=== PATIENT | female | born 1955 ===

== ENCOUNTER 2017-12-08 20:09 | Emergency (ER) | payer OTHER ==
[2017-12-08 20:57] VITALS: TEMP 98.2; BMI 32.0
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
[2017-12-08 23:13] VITALS: BP 119/85; PULSE 68; RESP 22; O2SAT 100
== END 2017-12-08 22:35 | disposition home or self-care (01) ==
LOC: ED 20:09
DX: M54.2 Cervicalgia (principal); V43.52XA Car driver injured in collision with other type car in traffic accident, initial encounter; Y92.410 Unspecified street and highway as the place of occurrence of the external cause

== ENCOUNTER 2017-12-30 09:38 | Observation (INO) | payer OTHER ==
--- NOTE | 2017-12-30 09:56 | ED PDOC ---
Arrival/HPI - General Chief Complaint: Dizziness/Lightheaded Historian: Patient, Parent - History of Present Illness Narrative History of Present Illness (Text): 12/30/17 09:48 62 y/o female, pmh including htn/DM (on januvia), post menopausal, nkda, c/o d izziness/nauseas/vomiting after woke up from sleeping this morning x 2 hours. Pt. stated that she feels fine last night before sleeping, woke up this morning with dizziness room spinning sensation associated with nausea/vomiting, been vomiting with elevated BP, no chest pain or shortness of breath, no numbness or tingling, no slurred speech, no other medical or psychological complaints. Past Medical History - Provider Review Nursing Documentation Reviewed: Yes - Cardiac Hx Cardiac Disorders: Yes Hx Hypertension: Yes - Pulmonary Hx Respiratory Disorders: No - Neurological Hx Neurological Disorder: No - HEENT Hx HEENT Disorder: No - Renal Hx Renal Disorder: No - Endocrine/Metabolic Hx Endocrine Disorders: Yes Hx Diabetes Mellitus Type 2: Yes - Hematological/Oncological Hx Blood Disorders: No - Integumentary Hx Dermatological Disorder: No - Musculoskeletal/Rheumatological Hx Musculoskeletal Disorders: Yes Hx Osteoarthritis: Yes - Genitourinary/Gynecological Hx Genitourinary Disorders: No - Psychiatric Hx Psychophysiologic Disorder: No Hx Substance Use: No - Surgical History Hx Section: Yes - Anesthesia Hx Anesthesia: Yes Hx Anesthesia Reactions: Yes Family/Social History - Physician Review Nursing Documentation Reviewed: Yes Family/Social History: Unknown Family HX Smoking Status: Never Smoked Hx Alcohol Use: No Hx Substance Use: No Allergies/Home Meds Allergies/Adverse Reactions: Allergies seasonal Allergy (Uncoded 12/30/17 09:41) CONGESTION Home Medications: Home Meds Medication Instructions Recorded Confirmed Losartan/Hydrochlorothiazide 1 tab PO DAILY 12/30/17 12/30/17 [Hyzaar 100-25 Tablet] Metoprolol Succinate [Kapspargo 50 mg PO DAILY 12/30/17 12/30/17 Sprinkle] amLODIPine [Norvasc] 5 mg PO DAILY 12/30/17 12/30/17 Review of Systems - Review of Systems Constitutional: absent: Fatigue, Fevers Eyes: absent: Vision Changes ENT: absent: Hearing Changes Respiratory: absent: SOB, Cough Cardiovascular: absent: Chest Pain Gastrointestinal: absent: Abdominal Pain, Nausea, Vomiting Musculoskeletal: absent: Arthralgias, Back Pain Skin: absent: Rash, Pruritis Neurological: absent: Headache, Dizziness Hemo/Lymphatic: absent: Adenopathy Psychiatric: absent: Anxiety, Depression, Suicidal Ideation Physical Exam Vital Signs Reviewed: Yes Vital Signs Temp Pulse Resp BP Pulse Ox 12/30/17 09:44 97.8 F 73 20 198/95 H 99 Temperature: Afebrile Blood Pressure: Hypertensive Pulse: Regular Respiratory Rate: Normal Appearance: Positive for: Well-Appearing, Non-Toxic, Comfortable Pain Distress: None Mental Status: Positive for: Alert and Oriented X 3 - Systems Exam Head: Present: Atraumatic, Normocephalic. No: Tenderness, Contusion, Swelling, Ecchymosis, Abrasion, Laceration, Other Pupils: Present: PERRL Extroacular Muscles: Present: EOMI Conjunctiva: Present: Normal Ears: Present: NORMAL TM, Normal Canal. No: Erythema Mouth: Present: Moist Mucous Membranes Pharnyx: No: ERYTHEMA, EXUDATE, TONSILS ENLARGED Nose (External): Present: Atraumatic. No: Abrasion, Contusion, Laceration Nose (Internal): Present: Normal Inspection, No Active Bleeding. No: Rhinorrhea, Septal Hematoma, Epistaxis Neck: Present: Normal Range of Motion Respiratory/Chest: Present: Clear to Auscultation, Good Air Exchange. No: Respiratory Distress, Accessory Muscle Use Cardiovascular: Present: Regular Rate and Rhythm, Normal S1, S2. No: Murmurs Abdomen: No: Tenderness, Distention, Peritoneal Signs, Rebound, Guarding Back: Present: Normal Inspection. No: Midline Tenderness, Paraspinal Tenderness, Pain with Leg Raise, Decubitus Ulcer Upper Extremity: Present: Normal Inspection, Normal ROM, NORMAL PULSES, Neurovascularly Intact, Capillary Refill < 2s. No: Cyanosis, Edema, Deformity Lower Extremity: Present: Normal Inspection, NORMAL PULSES, Normal ROM, Neurovascularly Intact, Capillary Refill < 2 s. No: Edema, Deformity Neurological: Present: GCS=15, CN II-XII Intact, Speech Normal, Motor Func Grossly Intact, Gait Normal, Memory Normal Skin: Present: Warm, Dry, Normal Color. No: Rashes Psychiatric: Present: Alert, Oriented x 3, Normal Insight, Normal Concentration Medical Decision Making ED Course and Treatment: 12/30/17 10:05 -Labs -CT head -IVF/meclizine/zofran -Observe and reassess 12/30/17 10:46 -EKG NSR @ 64 BPM, no ST elevation or depression, no T wave inversion. -CT Head show No acute intracranial abnormality. If there is a persistent focal neurologic deficit and an ongoing clinical concern for acute infarction, an MRI of the brain without intravenous contrast would be a more sensitive modality for evaluation of hyperacute/acute ischemic infarction. -Labs show no acute findings except glucose 405 (bolus fluid ordered) -Mg within normal limit -Lipase within normal limit -UA show no UTI 12/30/17 14:48 -FS 239 after IVF without insulin. -VBG 7.29, so ABG ordered. 12/30/17 15:13 -ABG: PH 7.36, PCO2 43, HCO3 24.3, no signs of DKA, Carboxyhemoglobin 2.1 (normal non smoker up to 3 percent). -Pt. is hungry, eating and drinking well, walking with normal gait and posture, no focal neurological complaints, no focal neurological deficits, all labs and radiology result discussed with the patient. Pt. is out of metformin 500mg po bid and Januvia 100mg po qd, request medication refill. -Pt. didn't take her BP medication today, amlodipine and hyzaar 100-12.5 mg po ordered. 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 - RAD Interpretation Radiology Orders: PROCEDURE: CT HEAD WITHOUT CONTRAST. HISTORY: dizziness/nausea/vomiting COMPARISON: None available. TECHNIQUE: Axial computed tomography images were obtained through the head/brain without intravenous contrast. Radiation dose: Total exam DLP = 968.56 mGy-cm. This CT exam was performed using one or more of the following dose reduction techniques: Automated exposure control, adjustment of the mA and/or kV according to patient size, and/or use of iterative reconstruction technique. FINDINGS: HEMORRHAGE: No intracranial hemorrhage. BRAIN: Garzon-white matter differentiation is preserved. There is no mass, mass effect or abnormal extra-axial fluid collection. There is no territorial infarction. The midline sagittal structures are normal. VENTRICLES: There is mild age-related global parenchymal volume loss and proportionate enlargement of the ventricles and cortical sulci. CALVARIUM: There is no calvarial fracture or extracranial soft tissue swelling. PARANASAL SINUSES: Predominantly clear. MASTOID AIR CELLS: Predominantly clear. OTHER FINDINGS: None. IMPRESSION: No acute intracranial abnormality. If there is a persistent focal neurologic deficit and an ongoing clinical concern for acute infarction, an MRI of the brain without intravenous contrast would be a more sensitive modality for evaluation of hyperacute/acute ischemic infarction. Plastics Supervisor: Radiologist - EKG Interpretation EKG Interpretation (Text): 12/30/17 10:42 NSR @ 64 BPM, no ST elevation or depression, no T wave inversion. Interpreted by ED Physician: Yes Type: 12 lead EKG - PA / PRODUCER / Resident Statement MD/DO has reviewed & agrees with the documentation as recorded. Disposition/Present on Arrival - Present on Arrival Any Indicators Present on Arrival: No History of DVT/PE: No History of Uncontrolled Diabetes: Yes Urinary Catheter: No History of Decub. 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 Prescriptions: Meclizine [Meclizine*] 25 mg PO Q6 PRN #30 tab PRN Reason: Other metFORMIN [glucOPHAGE] 500 mg PO BID #60 tab Ondansetron [Zofran] 4 mg PO Q8H PRN #12 tab PRN Reason: Other SITagliptin [Januvia] 100 mg PO DAILY #30 tab Referrals: Monica Oakley MD [Medical Doctor] - Follow up with primary [facility] [place] [Outside] - Follow up with primary Jenni García MD [Staff Provider] - Follow up with primary Forms: [employer] (Serbian), WORK NOTE
[2017-12-30] MEDS ORDERED: Sodium Chloride 0.9% 500 ML IV STA ×3 (09:57→13:09)
[2017-12-30 10:08] LABS: BASO # 0.05 K/mm3 (0.0-2.0); BASO % 0.5 % (0.0-3.0); EOS # 0.4 (0.0-0.7); EOS % 3.6 % (1.5-5.0); GRAN # 8.1 (1.4-6.5); GRAN % 74.9 % (50.0-68.0); HEMOGLOBIN 15.1 g/dL (12.0-16.0); LYMPH # 1.7 (1.2-3.4); LYMPH % 15.6 % (22.0-35.0); MEAN CELL VOLUME 86.7 fl (80.0-105.0); MEAN CORPUSCULAR HGB CONC 34.6 g/dl (31.0-37.0); MEAN PLATELET VOLUME 10.9 fl (7.0-11.0); MONO # 0.6 (0.1-0.6); MONO % 5.4 % (1.0-6.0); RBC 5.03 10^6/uL (3.5-6.1); RED CELL DISTRIBUTION WIDTH 12.3 % (11.5-14.5); WHITE BLOOD COUNT 10.8 10^3/uL (4.5-11.0)
[2017-12-30] MEDS: Sodium Chloride 0.9% 1,000 ML IV SCH ×2 (10:11→21:23)
[2017-12-30 10:26] LABS: ALB/GLOB RATIO 1.2 (1.1-1.8); ALBUMIN 4.5 g/dL (3.0-4.8); ALT/SGPT 28 U/L (7-56); AST/SGOT 29 U/L (14-36); BLOOD UREA NITROGEN 21 mg/dL (7-21); CALCIUM 9.4 mg/dL (8.4-10.5); GFR NON-AFRICAN AMERICAN > 60; LIPASE 127 U/L (23-300)
--- NOTE | 2017-12-30 10:41 | CT ---
Date of service: 12/30/2017 PROCEDURE: CT HEAD WITHOUT CONTRAST. HISTORY: dizziness/nausea/vomiting COMPARISON: None available. TECHNIQUE: Axial computed tomography images were obtained through the head/brain without intravenous contrast. Radiation dose: Total exam DLP = 968.56 mGy-cm. This CT exam was performed using one or more of the following dose reduction techniques: Automated exposure control, adjustment of the mA and/or kV according to patient size, and/or use of iterative reconstruction technique. FINDINGS: HEMORRHAGE: No intracranial hemorrhage. BRAIN: Garzon-white matter differentiation is preserved. There is no mass, mass effect or abnormal extra-axial fluid collection. There is no territorial infarction. The midline sagittal structures are normal. VENTRICLES: There is mild age-related global parenchymal volume loss and proportionate enlargement of the ventricles and cortical sulci. CALVARIUM: There is no calvarial fracture or extracranial soft tissue swelling. PARANASAL SINUSES: Predominantly clear. MASTOID AIR CELLS: Predominantly clear. OTHER FINDINGS: None. IMPRESSION: No acute intracranial abnormality. If there is a persistent focal neurologic deficit and an ongoing clinical concern for acute infarction, an MRI of the brain without intravenous contrast would be a more sensitive modality for evaluation of hyperacute/acute ischemic infarction.
[2017-12-30 11:18] LABS: VENOUS BLOOD GAS BASE EXCESS 0.1 mmol/L (0.0-2.0); VENOUS BLOOD GAS PO2 63 mm/Hg (30-55); VENOUS BLOOD PH 7.29 (7.32-7.43)
[2017-12-30 13:02] LABS: URINE BILIRUBIN NEGATIVE (NEGATIVE); URINE BLOOD NEGATIVE (NEGATIVE); URINE GLUCOSE (UA) >=1000 mg/dL (NEGATIVE); URINE LEUKOCYTE ESTERASE NEGATIVE Leu/uL (NEGATIVE); URINE PROTEIN NEGATIVE mg/dL (<30 mg/dL); URINE UROBILINOGEN 0.2 E.U./dL (<1 E.U./dL)
[2017-12-30 13:03] LABS: URINE APPEARANCE CLEAR (CLEAR); URINE COLOR YELLOW (YELLOW)
[2017-12-30 14:57] LABS: ARTERIAL BLOOD GAS HCO3 24.3 mmol/L (21-28); ARTERIAL BLOOD GAS HEMOGLOBIN 13.8 g/dL (11.7-17.4); ARTERIAL BLOOD GAS O2 CAPACITY 18.8 mL/dl (16-24); ARTERIAL BLOOD GAS O2 CONTENT 17.4 ML/dl (15-23); ARTERIAL BLOOD GAS O2 SAT 92.4 % (95-98); ARTERIAL BLOOD GAS PCO2 43 mm/Hg (35-45); ARTERIAL BLOOD GAS PH 7.36 (7.35-7.45); ARTERIAL BLOOD GAS TCO2 25.6 mmol.L (22-28)
--- NOTE | 2017-12-30 15:36 | CARD ---
APPROVED REPORT Date of service: 12/30/2017 EKG Measurement Heart [id number] <Conclusion> Normal sinus rhythm Possible Left atrial enlargement Borderline ECG
[2017-12-30 20:34] LABS: TROPONIN I < 0.01 ng/mL
[2017-12-31 00:14] VITALS: BMI 31.1
--- NOTE | 2017-12-31 01:16 | CON ---
DATE: 12/30/2017 HISTORY OF PRESENT ILLNESS: This is a 62-year-old female with known history of type 2 diabetes and hypertension with recent drug omission and now presenting with generalized body weakness and supervening dizziness, lightheadedness with marked hyperglycemic accelerations and is now being referred for diabetic evaluation and management. PAST MEDICAL HISTORY: History of type 2 diabetes, previously on Januvia given at 100 mg daily with metformin given at 500 mg b.i.d. and apparently ran out of current prescriptions with no recent medical followup. History of hypertension and dyslipidemia, currently on Hyzaar 100 - 25 daily with Norvasc at 5 mg daily and metoprolol at 50 mg daily. FAMILY HISTORY: Positive for diabetes and hypertension. SOCIAL HISTORY: The patient has supportive family. No known substance use. REVIEW OF SYSTEMS: As mentioned above. Admits to generalized body weakness with progressive bouts of dizziness and lightheadedness, worse in the last 2 days or so prior to admission. Also, admits to bifrontal headaches with visual blurring. No chest pains or palpitations but admits to progressive shortness of breath especially on exertion. Her oral intake has been suboptimal and variable with nausea, dyspepsia and episodic vomiting episodes. Also, admits to marked polyuria, nocturia and polydipsia. PHYSICAL EXAMINATION: GENERAL: Is an average built female, is an overweight female in no apparent distress. VITAL SIGNS: Blood pressure of 160/100, pulse of 80 beats per minute regular, temperature 98, respirations 20, height is 5 feet 2 inches, weight is 151 pounds. HEENT: Head normocephalic. Eyes anicteric with pink conjunctivae. Funduscopy not possible at this time. Ears, nose and throat otherwise normal. NECK: Supple. Thyroid gland is normal in size. No carotid bruits or any cervical adenopathy. CARDIOPULMONARY: Some adynamic precordium. S1, S2 is rapid and regular. LUNGS: Are clear to auscultation. ABDOMEN: Flat, soft with positive bowel sounds. EXTREMITIES: No peripheral edema. Pulses are +2 bilaterally. LABORATORY DATA: Her chemistries showed a BUN of 21, sodium 136, potassium 3.9, chloride 100, CO2 of 25, glucose 405 and creatinine 0.5. Her subsequent glucose levels have ranged from 239 to 321 mg/dL. ASSESSMENT: This is a 62-year-old female with uncontrolled and decompensated type 2 diabetes presenting here with severe bouts of dizziness and lightheadedness with bifrontal headaches and concomitant accelerated hypertension with also marked hyperglycemic accelerations related to recent drug omission as noted thereof. The possibility of a transient ischemic event versus hypertensive encephalopathy and concomitant accelerated hypertension has to be excluded at this time. Moreover, there is also biochemical evidence of dehydration and prerenal azotemia expected with increased osmotic diuresis thereof from the marked hyperglycemic accelerations. PLAN OF MANAGEMENT: We will continue the vigorous IV hydration as ordered and obtain serial chemistries and supplement accordingly as needed. We will also initiate Januvia given as 100 mg daily with metformin given as 500 mg b.i.d. We will order a sliding scale coverage with Humalog insulin as given but only has a minimal coverage to obviate hypoglycemia. If fasting hyperglycemic levels persist, then may consider the addition of basal insulin as indicated. We will follow and advise accordingly. Monica Oakley MD
--- NOTE | 2017-12-31 03:41 | HP ---
DATE OF EXAM: 12/30/2017 The patient was seen and examined at the bedside on 12/30/2017 in the emergency room. CHIEF COMPLAINT: Dizziness and lightheadedness. HISTORY OF PRESENT ILLNESS: Ms. 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 The patient stated that she felt fine last night before she go to sleep, woke up this morning with dizziness, room spinning sensation associated with nausea and vomiting with high blood pressure. No chest pain. No shortness of breath. No swelling of feet. No other psychosocial complaints as per patient. I had discussion done with the patient and ER physician. Kept the patient overnight. Field Cashier and neurologist contacted. PAST MEDICAL HISTORY: Hypertension, diabetes mellitus type 2, osteoarthritis, section. ALLERGIES: THE PATIENT HAS SEASONAL ALLERGIES. HOME MEDICATIONS: Losartan, metoprolol, and amlodipine. REVIEW OF SYSTEMS: The patient was seen and examined at the bedside in the emergency room as reported above. Children were sitting on the bedside also,feeling a little bit better, but still feeling fatigued and tired. No vision changes. No hearing changes. No shortness of breath. No chest pain. No abdominal pain, nausea, vomiting. No arthralgia. No rash or pruritus. No headache. No dizziness. No anxiety or depression. PHYSICAL EXAMINATION VITAL SIGNS: Temperature 97.8, pulse 73, respiratory rate 20, blood pressure 198/59, pulse oximetry 99. HEENT: Head: Normocephalic and atraumatic. Eyes: PERRLA. Extraocular muscles intact. Conjunctivae clear. Nose patent. NECK: Supple. No carotid bruits. No JVD or thyromegaly. CHEST: Bilateral symmetrical. HEART: S1 and S2 positive. LUNGS: Clear to auscultation. ABDOMEN: Soft. Bowel sounds present. No organomegaly. EXTREMITIES: No edema. No cyanosis. NEUROLOGIC: The patient is awake and alert. Moving all 4 extremities. No focal deficits. LABORATORY DATA: White blood cell count 7.8, hemoglobin 15.1, hematocrit 43.6, and platelets 266,000. Sodium 136, potassium 3.9, BUN 21, and creatinine 0.5. Glucose 321, 405. ASSESSMENT AND PLAN: Ms. Magaly Felipe is a 62-year-old lady with hyperglycemia, proteinuria. The CAT scan of the head, electrocardiogram is done, no acute intracranial abnormalities. If there is persistent focal neurological deficit and ongoing clinical concern of acute infarction, an MRI of the brain without intravenous contrast would be more sensitive modality for evaluation of hyperacute/acute ischemic infarction as per Dr. Lipscomb. The patient has history of diabetes mellitus type 2. Patient is admitted to the telemetry for hypoglycemic control, vertigo. Lot of discussion done with the patient's ER physician. The patient will get hydration, put on sliding scale, home medication. Neurologist and biomaterials engineer will see the patient. Metformin given. Zofran given. Gastrointestinal and deep venous thrombosis prophylaxis done. Repeat labs. We will follow up. Sapna Suarez MD MTDD
[2017-12-31] MEDS: Sodium Chloride 0.9% 1,000 ML IV SCH ×2 (05:43→17:04)
[2017-12-31 06:50] VITALS: O2SAT 98
[2017-12-31 07:31] LABS: LDL CHOLESTEROL 132 mg/dL (0-129)
[2017-12-31] MEDS: Insulin Lispro (humaLOG) LOW Coverage SC SCH ×3 (07:32→16:59)
[2017-12-31 07:33] LABS: BLOOD UREA NITROGEN 19 mg/dL (7-21); GFR NON-AFRICAN AMERICAN > 60
[2017-12-31 07:34] LABS: ALB/GLOB RATIO 1.1 (1.1-1.8); ALBUMIN 3.7 g/dL (3.0-4.8); ALT/SGPT 24 U/L (7-56); AST/SGOT 20 U/L (14-36); CALCIUM 8.7 mg/dL (8.4-10.5); HDL CHOLESTEROL 53 mg/dL (29-60)
[2017-12-31] MEDS ORDERED: Metoprolol Succinate 50 mg XL Tab PO SCH (08:00)
[2017-12-31 17:35] VITALS: BP 133/78; PULSE 71; RESP 18; TEMP 99
--- NOTE | 2017-12-31 18:37 | CON ---
DATE: 12/31/2017 NEUROLOGY CONSULTATION CHIEF COMPLAINT: Dizziness and lightheadedness. 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 The patient said she felt like more spinning sensation that was associated with nausea and vomiting and also has elevated high blood pressure systolically and diastolically as well as hyperglycemia in terms of blood sugar is more than 321. Currently, her blood sugars have been corrected by Endocrinology and blood pressures on a much better scale. CAT scan of the head showed no acute intracranial abnormalities neuro exam. Her neuro exam is nonfocal. Romberg is negative, does feel a little bit better than before. She is on meclizine for dizziness. PAST MEDICAL HISTORY: As above. SOCIAL HISTORY: No illicit drug use, smoking, or EtOH abuse. ALLERGIES: ALLERGIC TO SEASONAL. FAMILY HISTORY: Noncontributory. REVIEW OF SYSTEMS: A 14-point review of systems as per HPI. MEDICATIONS: Reviewed by nurse reconciliation sheet. LABORATORY TEST: Sodium is 138, potassium 3.4, chloride 102, carbon dioxide 30, BUN of 19, creatinine 0.7, random glucose 207, LDL of 132, total cholesterol 210. PHYSICAL EXAMINATION: GENERAL: The patient is sitting up in bed, in no acute distress. VITAL SIGNS: Temperature 98.6, pulse rate 88, blood pressure 114/66, respiratory rate 17, oxygen saturation 98% on room air. HEENT: Atraumatic and normocephalic. PERRLA. Extraocular muscles intact. NECK: Supple. No JVD. No adenopathy noted. LUNGS: Clear to auscultation. No adventitious sounds. HEART: S1 and S2. Normal rate and rhythm. No murmurs, rubs or gallops. ABDOMEN: Soft, nontender, and nondistended. Bowel sounds are present. EXTREMITIES: No clubbing. No cyanosis. Peripheral pulses 2+ felt bilaterally. NEUROLOGIC: The patient is alert and oriented to person, place, month, and year. Speech is fluent without any errors. Cranial nerves II through XII intact. Motor exam: Moves all extremities equally. Toes are downgoing bilaterally. Sensory exam: Light touch, pinprick, proprioception and vibration are intact. DTRs are 2+ throughout. Coordination: [id number] intact. Gait is normal and Romberg negative. IMPRESSION: Dizziness is more of a positional vertigo aggravated by hypertensive episode in addition to hyperglycemia. RECOMMENDATIONS: At this time, we recommend: 1. Keep her blood pressure between 130s-140 systolic and diastolic 70s-80s. 2. Keep blood sugars between 140 to 180 and continue with Januvia as well as metformin and follow Endocrinology recommendations. 3. Meclizine 25 mg p.o. at every onset of dizziness. We will benefit from outpatient vestibular therapy. She is clinically stable at this time. Continue with aspirin antiplatelet therapy as well as Lipitor for stroke prevention. Ashish Eduardo MD
--- NOTE | 2017-12-31 22:42 | PN ---
DATE: 12/31/2017 ENDO FOLLOW UP NOTE ROOM: 263. SUBJECTIVE: This is a 62-year-old female with recent uncontrolled type 2 diabetes presenting here with marked hyperglycemic accelerations and concomitant progressive dizziness and lightheadedness with generalized body weakness and is now being followed closely for metabolic management. Her glycemic levels overnight have improved with the initiation of insulin therapy as a coverage scale and also with the resumption of her oral hypoglycemic therapy as given today. LABORATORY DATA: Her glucose values have ranged from 198-200 and 296 mg/dL. Her latest chemistries showed a BUN of 19, sodium 138, potassium 3.4, chloride 102, CO2 30, glucose 207 and creatinine 0.7. PLAN: So at this time, we will continue the resumption of her oral hypoglycemic therapy given in combination with Januvia at 100 mg once daily and metformin at 500 mg b.i.d. after meals as ordered. We will continue the low-dose correction scale using Humalog insulin as given. We will obtain serial chemistries and supplement accordingly as needed. We will follow. Monica Oakley MD
== END 2017-12-31 19:15 | disposition home or self-care (01) ==
LOC: ED 09:38 → ERH 17:56 → 2RNO 22:25
PROVIDERS: ADMIT Internal Medicine; ATTEND Internal Medicine
DX: E11.65 Type 2 diabetes mellitus with hyperglycemia (principal); E86.0 Dehydration; I10 Essential (primary) hypertension; R42 Dizziness and giddiness; E78.5 Hyperlipidemia, unspecified; M19.90 Unspecified osteoarthritis, unspecified site; Z79.84 Long term (current) use of oral hypoglycemic drugs
CPT/HCPCS: 36415; 70450; 80053; 80061; 81003; 82550; 82803; 82948; 83036; 83615; 83690; 83735; 84100; 84443; 84484; 85025; 87804; 93005; 96374; 96375; 99285; G0378; J2405; J2765; J7030; J7040